=== PATIENT | male | born 1985 | race Caucasian/White ===

== ENCOUNTER 2016-07-23 22:38 | Emergency (ER) | payer MEDICAID, OTHER ==
[2016-07-23] MEDS ORDERED: Sodium Chloride 0.9% 2.5 ML Syringe FLUSH PRN (22:55)
[2016-07-23] MEDS ORDERED: Sodium Chloride 0.9% 10 ML Syringe FLUSH PRN (22:55)
[2016-07-23] MEDS ORDERED: Sodium Chloride 0.9% 1,000 ML IV ONE (22:55)
--- NOTE | 2016-07-23 23:02 | EDM.PDOC ---
ED HPI GENERAL MEDICAL PROBLEM - General Stated Complaint: POSSIBLE OVERDOSE Time Seen by Provider: 07/23/16 22:44 - History of Present Illness INITIAL COMMENTS - FREE TEXT/NARRATIVE: HISTORY AND PHYSICAL: History of present illness: The patient is a 30-year-old male with sketchy history as he is unable to offer any information who was noted by police and EMS to the testing messages to family and friends about wanting to kill himself at approximately 20 1:45 PM. Police and paramedics arrived on scene and had locked himself in his camper and was found with decreased mental status and a bottle of Carisoprodol 350mg that was empty. The prescription was filled 2/ of this year and had #90 tablets. It is unclear how many he took and the exact timing of that indigestion. There were no other pole bottle seen nor any bottles of alcohol. Patient's past medical history and past psychiatric history is unknown as the patient is nonverbal here in the ED. Further history about these events and preceding events are unknown. Per police who have arrived here in the ED the patient is currently under treatment with our clinic for colon cancer and he has been "up and down in his emotions regarding that". He is also not a job for a year and isn't that financially. Also is told by the family to the police are concerned that his ex is and going to have a baby and we are not sure at this point if all of these things contributed to today's events. Review of systems: As per history of present illness and below otherwise all systems reviewed and negative. Past medical history: As per history of present illness and as reviewed below otherwise noncontributory. Surgical history: As per history of present illness and as reviewed below otherwise noncontributory. Social history: No reported history of drug or alcohol abuse. Family history: As per history of present illness and as reviewed below otherwise noncontributory. Physical exam: General: Well-developed well-nourished male who is nontoxic and breathing spontaneously but is not responding to painful stimuli verbal stimuli and has a diminished gag reflex. Vital signs are noted by me. HEENT: Atraumatic, normocephalic, pupils reactive but larger than mid range and somewhat sluggish, negative for conjunctival pallor or scleral icterus, mucous membranes tacky, throat clear, neck supple, nontender, trachea midline. Lungs: Clear to auscultation, breath sounds equal bilaterally, chest nontender, diminished and coarse. breath sounds throughout Heart: S1S2, regular rhythm and tachycardic rate, negative for clicks, rubs, or JVD. Abdomen: Soft, nondistended, nontender. There are old scars that are well- healed on the abdomen. Negative for masses or hepatosplenomegaly. Negative for costovertebral tenderness. Pelvis: Stable nontender. Genitourinary: Deferred. Rectal: Deferred. Extremities: Atraumatic, negative for cords or calf pain. Neurovascular unremarkable. No evidence of any trauma seen on extremities Neuro: Patient not responding to verbal or painful stimuli and has minimal spontaneous movements Motor and sensory unremarkable throughout but difficult to evaluate. Exam nonfocal. Back: There are no midline step-offs or defects of the thoracic or lumbar spine and there is no soft tissue injury seen Skin: Normal turgor no evidence of any rashes or lesions and no track mckee or lacerations are seen on the upper extremities or lower extremities. Diagnostics: CBC CMP TSH EtOH Tylenol and aspirin levels and UA UDS chest x-ray EKG Therapeutics: Narcan IV fluids IV O2 monitor 2253: Case was discussed with poison control and the peak of soma is approximately 2 hours but there is a very long half-life. Due to the patient's questionable ability to maintain his airway we will choose to electively intubate this patient and transfer them to [facility] in [place]. The patient had no response to IV Narcan 2305: Case was discussed with Dr. Ramirez the ER physician at [facility] who accepts the patient for transfer. Flight team is in route and we are currently electively intubating the patient for airway protection 2320: Patient was electively intubated by anesthesia without complication; please see their note. Post intubation x-ray was performed and I will review that. Slight team is at bedside and all labs have been sent and are currently pending. We will followup these tests and send them to [facility] once available. Patient's vitals are stable. Impression: Intentional overdose of soma, suicide attempt, severe depression, history of colon cancer Definitive disposition and diagnosis as appropriate pending reevaluation and review of above. - Related Data Allergies Allergy/AdvReac Type Severity Reaction Status Date / Time No Known Allergies Allergy Verified 04/03/15 11:33 Home Meds: Home Meds Magnesium Citrate 295 ml PO ONETIME #1 solution 04/03/15 [Rx] Tamsulosin [Flomax] 0.4 mg PO BIDPC #60 cap.er 04/03/15 [Rx] Past Medical History Cardiovascular History: Reports: None Respiratory History: Reports: None Gastrointestinal History: Reports: Chronic constipation Genitourinary History: Reports: None Musculoskeletal History: Reports: None Neurological History: Reports: None Psychiatric History: Reports: None Endocrine/Metabolic History: Reports: None Hematologic History: Reports: None Immunologic History: Reports: None Oncologic (Cancer) History: Reports: None Dermatologic History: Reports: None - Infectious Disease History Infectious Disease History: Reports: Chicken pox - Past Surgical History Head Surgeries/Procedures: Reports: None HEENT Surgical History: Reports: Adenoidectomy, Myringotomy w tube(s), Tonsillectomy Cardiovascular Surgical History: Reports: None Respiratory Surgical History: Reports: None GI Surgical History: Reports: None Neurological Surgical History: Reports: None Musculoskeletal Surgical History: Reports: None Oncologic Surgical History: Reports: None Dermatological Surgical History: Reports: None Social & Family History - Family History Cardiac: Reports: Hypertension GI: Reports: Cholelithiasis OBGYN: Reports: None Neurological: Reports: MS Endocrine/Metabolic: Reports: Diabetes, type II Hematologic: Reports: None Immunologic: Reports: None Oncologic: Reports: None - Tobacco Use Smoking Status *Q: Current Every Day Smoker Years of Tobacco use: 10 Packs/Tins Daily: 0.2 - Recreational Drug Use Recreational Drug Use: No ED ROS GENERAL - Review of Systems Review Of Systems: ROS reveals no pertinent complaints other than HPI. ED EXAM, GENERAL - Physical Exam Exam: See Below (See dictation) Course - Orders/Labs/Meds Orders: Active Orders 24 hr Category Date Time Status Cardiac Monitoring [RC] . DIRECTED Care 07/23/16 22:53 Active EKG Documentation Completion [RC] STAT Care 07/23/16 22:53 Active Oxygen Therapy, ED [RC] ASDIRECTED Care 07/23/16 22:53 Active Pulse Oximetry [RC] ASDIRECTED Care 07/23/16 22:53 Active Chest 1V Frontal [CR] Stat Exams 07/23/16 22:55 Ordered ACETAMINOPHEN [CHEM] Stat Lab 07/23/16 22:55 Received CBC WITH AUTO DIFF [HEME] Stat Lab 07/23/16 23:05 Ordered COMPREHENSIVE METABOLIC PN,CMP [CHEM] Stat Lab 07/23/16 22:55 Received DRUG SCREEN, URINE [URCHEM] Stat Lab 07/23/16 23:20 Ordered ETHANOL BLOOD MEDICAL [CHEM] Stat Lab 07/23/16 22:55 Received SALICYLATE [CHEM] Stat Lab 07/23/16 22:55 Received TSH [CHEM] Stat Lab 07/23/16 22:55 Received UA W/MICROSCOPIC [URIN] Stat Lab 07/23/16 23:20 Ordered Sodium Chloride 0.9% [Normal Saline] 1,000 ml Med 07/23/16 22:55 Active IV STAT Sodium Chloride 0.9% [Saline Flush] Med 07/23/16 22:55 Active 10 ml FLUSH ASDIRECTED PRN Sodium Chloride 0.9% [Saline Flush] Med 07/23/16 22:55 Active 2.5 ml FLUSH ASDIRECTED PRN Saline Lock Insert [OM.PC] Stat Oth 07/23/16 22:53 Ordered Medication Orders Sodium Chloride (Normal Saline) 1,000 mls @ 999 mls/hr IV STAT ONE Stop: 07/23/16 23:55 Sodium Chloride (Saline Flush) 10 ml FLUSH ASDIRECTED PRN PRN Reason: Keep Vein Open Sodium Chloride (Saline Flush) 2.5 ml FLUSH ASDIRECTED PRN PRN Reason: Keep Vein Open Meds: Medications Generic Name Dose Route Start Last Admin Trade Name Freq PRN Reason Stop Dose Admin Sodium Chloride 1,000 mls @ 999 mls/hr 07/23/16 22:55 Normal Saline IV 07/23/16 23:55 STAT ONE Sodium Chloride 10 ml 07/23/16 22:55 Saline Flush FLUSH ASDIRECTED PRN Keep Vein Open Sodium Chloride 2.5 ml 07/23/16 22:55 Saline Flush FLUSH ASDIRECTED PRN Keep Vein Open Discontinued Medications Generic Name Dose Route Start Last Admin Trade Name Freq PRN Reason Stop Dose Admin Propofol Confirm 07/23/16 23:03 Diprivan 50 Ml Administered 07/23/16 23:04 Dose 50 mls @ as directed .ROUTE .STK-MED ONE Midazolam HCl Confirm 07/23/16 23:03 Versed 1 Mg/Ml Administered 07/23/16 23:04 Dose 2 mg .ROUTE .STK-MED ONE Naloxone HCl 2 mg 07/23/16 23:03 Narcan IVPUSH 07/23/16 23:04 ONETIME ONE Naloxone HCl 2 mg 07/23/16 23:04 Narcan IVPUSH 07/23/16 23:05 ONETIME ONE Departure - Departure Time of Disposition: 23:22 Disposition: DC/Tfer to Acute Hospital 02 Condition: fair Clinical Impression: Intentional drug overdose Qualifiers: Encounter type: initial encounter Qualified Code(s): T50.902A - Poisoning by unspecified drugs, medicaments and biological substances, intentional self-harm , initial encounter Depression Qualifiers: Depression Type: unspecified Qualified Code(s): F32.9 - Major depressive disorder, single episode, unspecified Colon cancer Qualifiers: Colon location: unspecified part of colon Qualified Code(s): C18.9 - Malignant neoplasm of colon, unspecified - My Orders Last 24 Hours: My Active Orders 07/23/16 22:53 Cardiac Monitoring [RC] . DIRECTED EKG Documentation Completion [RC] STAT Oxygen Therapy, ED [RC] ASDIRECTED Pulse Oximetry [RC] ASDIRECTED Saline Lock Insert [OM.PC] Stat 07/23/16 22:55 Chest 1V Frontal [CR] Stat ACETAMINOPHEN [CHEM] Stat COMPREHENSIVE METABOLIC PN,CMP [CHEM] Stat ETHANOL BLOOD MEDICAL [CHEM] Stat SALICYLATE [CHEM] Stat TSH [CHEM] Stat Sodium Chloride 0.9% [Normal Saline] 1,000 ml IV STAT Sodium Chloride 0.9% [Saline Flush] 10 ml FLUSH ASDIRECTED PRN Sodium Chloride 0.9% [Saline Flush] 2.5 ml FLUSH ASDIRECTED PRN 07/23/16 23:05 CBC WITH AUTO DIFF [HEME] Stat 07/23/16 23:20 DRUG SCREEN, URINE [URCHEM] Stat UA W/MICROSCOPIC [URIN] Stat - Assessment/Plan Last 24 Hours: My Active Orders 07/23/16 22:53 Cardiac Monitoring [RC] . DIRECTED EKG Documentation Completion [RC] STAT Oxygen Therapy, ED [RC] ASDIRECTED Pulse Oximetry [RC] ASDIRECTED Saline Lock Insert [OM.PC] Stat 07/23/16 22:55 Chest 1V Frontal [CR] Stat ACETAMINOPHEN [CHEM] Stat COMPREHENSIVE METABOLIC PN,CMP [CHEM] Stat ETHANOL BLOOD MEDICAL [CHEM] Stat SALICYLATE [CHEM] Stat TSH [CHEM] Stat Sodium Chloride 0.9% [Normal Saline] 1,000 ml IV STAT Sodium Chloride 0.9% [Saline Flush] 10 ml FLUSH ASDIRECTED PRN Sodium Chloride 0.9% [Saline Flush] 2.5 ml FLUSH ASDIRECTED PRN 07/23/16 23:05 CBC WITH AUTO DIFF [HEME] Stat 07/23/16 23:20 DRUG SCREEN, URINE [URCHEM] Stat UA W/MICROSCOPIC [URIN] Stat
[2016-07-23] MEDS ORDERED: Midazolam 1 MG/ML 2 ML SDV ONE (23:03)
[2016-07-23] MEDS ORDERED: Naloxone 0.4 MG/ML Syringe IVPUSH ONE ×2 (23:03→23:04)
[2016-07-23 23:29] LABS: CHLORIDE,CL 109 mmol/L (98-110); SODIUM,NA 145 mmol/L (136-146)
--- NOTE | 2016-07-23 23:32 | PCM.SN ---
- Free Text/Narrative Note: Called to ER for possible overdose. On arrival pt is unresponsive to sternal rub. VS HR 120-140's, RR 20, SpO2 -99% on 10LPM Simple mask, BP 140/80. Dr Petersen is at the bedside requesting intubation for airway protection. RSI was performed with the following. Propofol 200mg IVP Rocuronium 10mg IVP Succinylcholine 100mg IVP DL with curran 3 yields grade I view with copious secretions. Secretions were cleared and 8.0 cuffed ETT was placed. +EtCO2 +BBS. CXR pending at this time. Flight team at the bedside. The following was given for continued sedation and muscle relaxation: Versed 2mg IV Propofol 50mg IV Rocuronium 30mg IV VSS post intubation: HR 120 RR - 12 controlled - 100% FiO2 BP - 132/74 SpO2 - 100%
[2016-07-23 23:59] LABS: ACETAMINOPHEN < 3.0 ug/mL
[2016-07-24 02:48] VITALS: BP 143/68
--- NOTE | 2016-07-24 12:22 | CR ---
EXAM DATE: 07/23/16 PATIENT'S AGE: 30 Patient: ALEX DE PAZ Facility: [place], [place] Site . Site : 1985 Study: XRay Chest [id number]/[id number] 11:23:42 PM Ordering Physician: Nicola Quintanilla Final Report: INDICATION: Respiratory distress TECHNIQUE: Chest 1 view on 2 films COMPARISON: None FINDINGS: Cardiovascular and mediastinum: The heart silhouette is normal in size and morphology. The mediastinum is normal in appearance. The endotracheal (ET) tube has its tip approximately 4.2 cm from the elvia. Right Port-A-Cath seen. NG tube present with tip coiled in the gastric fundus. Lungs and pleural spaces: Both lungs are clear. No pleural effusion seen. No pneumothorax is identified. Bones and soft tissues: No significant findings. IMPRESSION: 1. Both lungs are clear. Dictated by Parvez Ferreira MD @ 07/23/2016 11:25:03 PM Dictated by: Parvez Ferreira MD @ 07/23/2016 23:25:06 (Electronic Signature) Report Signed by Proxy and Original Signed Document filed in the Medical Record. [facility]ITALCrow
== END 2016-07-23 23:30 ==
LOC: MW.ED 22:38
DX: T50.902A Poisoning by unspecified drugs, medicaments and biological substances, intentional self-harm, initial encounter (principal); F32.9 Major depressive disorder, single episode, unspecified; C18.9 Malignant neoplasm of colon, unspecified; F17.210 Nicotine dependence, cigarettes, uncomplicated; Z98.890 Other specified postprocedural states
CPT/HCPCS: 36415; 43753; 71010; 80053; 80305; 81001; 84443; 85025; 93005; 96361; 96374; 99291; 99292; G0480; J2250; 31500; 99285; J2704